=== PATIENT | female | born 1950 | race Caucasian/White ===

== ENCOUNTER 2019-05-22 16:26 | Emergency (ER) | payer OTHER ==
--- OUTSIDE RECORDS SUMMARY | 2019-05-22 16:27 | XMS REPORT ---
:1950 [facility] Address [address] [place] [address] [address]. Zaidi [address] [place] [address] Care Team Providers Name Role Phone Unavailable Unavailable Unavailable Problems This patient has no known problems. Allergies, Adverse Reactions, Alerts This patient has no known allergies or adverse reactions. Medications This patient has no known medications. Encounters Start End Encounter Admission Attending Care Care Encounter Date/Time Date/Time Type Type Clinicians Facility Department ID 2019-03-03 Inpatient E [facility] [id number] 21:14:00
--- OUTSIDE RECORDS SUMMARY | 2019-05-22 16:27 | XMS REPORT ---
:1950 Author Organization eClinicalWorks Care Team Providers Name Role Phone Sophia Alvarado Provider Role Unavailable Allergies No Known Allergies Problems Problem Type Condition Code Onset Dates Condition Status Problem Diabetes E11.9 Active Problem Anxiety F41.9 Active Problem Hypertension I10 Active Problem Swelling R60.9 Active Problem Stroke I63.9 Active Problem Memory problem R41.3 Active Medications No Known Medications Results No Known Results Summary Purpose eClinicalWorks Submission
--- OUTSIDE RECORDS SUMMARY | 2019-05-22 16:28 | XMS REPORT ---
:1950 Author Organization eClinical[employer] Care Team Providers Name Role Phone Abdifatahmehrdad Sophia Provider Role Unavailable Allergies, Adverse Reactions, Alerts Substance Reaction Event Type N.K.D.A. Info Not Available Non Drug Allergy Problems Problem Type Condition Code Onset Dates Condition Status Problem Dysphagia, unspecified type R13.10 Active Problem Acute CVA (cerebrovascular accident) I63.9 Active Problem Swelling R60.9 Active Problem Hypertension I10 Active Assessment Dysarthria R47.1 Active Problem Diabetes E11.9 Active Assessment Paresis G83.9 Active Assessment Decreased sensation R20.8 Active Problem Essential hypertension I10 Active Problem Dysarthria R47.1 Active Problem Multiple falls R29.6 Active Problem Anxiety F41.9 Active Problem Memory problem R41.3 Active Assessment Multiple falls R29.6 Active Assessment Uncontrolled type 2 diabetes E11.65 Active mellitus with hyperglycemia Assessment Dysphagia, unspecified type R13.10 Active Assessment Acute CVA (cerebrovascular accident) I63.9 Active Problem Uncontrolled type 2 diabetes E11.65 Active mellitus with hyperglycemia Problem Paresis G83.9 Active Assessment Anxiety F41.9 Active Assessment Essential hypertension I10 Active Problem Insomnia, unspecified type G47.00 Active Assessment Insomnia, unspecified type G47.00 Active Problem Decreased sensation R20.8 Active Medications Medication Code Code Instructions Start End Status Dosage System Date Date Plavix [facility] 29161441278 75 MG Orally Active 1 tablet Once a day Potassium [facility] 45038624937 20 MEQ Orally Active 1 tablet Chloride Once a day with food Memantine HCl ND 35554273066 5 MG Orally Active 1 tablet Twice a day Lisinopril [facility] 18230311151 5 MG Orally Once Active 1/2 a day tablet Trazodone HCl [facility] 43101554136 100 MG Orally Active 1 tablet Once a day at bedtime HydrOXYzine HCl [facility] 69090586907 25 MG Orally Active 1 tablet Once daily in as needed evening Sertraline HCl [facility] 57920177906 100 MG Orally Active 1 tablet Once a day Aspirin 81 [facility] 29642562458 81 MG Orally Active 1 tablet Once a day Metformin HCl [facility] 18108237084 500 MG Orally Active 1 tablet Twice a day with a meal Results No Known Results Summary Purpose eClinicalWorks Submission
[2019-05-22] MEDS ORDERED: NA CHLORIDE 0.9% 1,000 ML ONE (17:12)
[2019-05-22] MEDS ORDERED: FOLIC ACID 5 MG/ML VIAL ONE (17:13)
[2019-05-22 17:40] LABS: Absolute Lymphocytes (CBC) 2.2 K/uL (0.7-4.9); Basophils % 0.7 % (0-1.3); Hematocrit 42.4 % (36.0-45.0); Lymphocytes % 26.3 % (15.3-44.8); MPV 7.7 fL (7.6-11.3); RBC Red Blood Cell Count 4.97 M/uL (3.86-4.86)
[2019-05-22 17:43] LABS: Protime INR 1.04
--- NOTE | 2019-05-22 17:49 | RAD REPORT ---
EXAM DESCRIPTION: CT - Head C Spine Cap Wo Con - 05/22/2019 5:16 pm TECHNIQUE: Computed axial tomography of the head and cervical spine was obtained. Coronal and sagitt al reconstruction was performed Computed axial tomography of the chest, abdomen and pelvis was obtained. Contrast was not requested. All CT scans are performed using dose optimization technique as appropriate and may include automated exposure control or mA/KV adjustment according to patient size. 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 Additional small amount of b lood is present within the medial left frontal region. It probably is subarachnoid. The ventricles are normal in caliber. An extra-axial fluid collection is not noted. . Fluid within the sinuses/mastoids is not seen. A cervical fracture is not seen. No dislocation is noted. Spondylosis The evaluation of mediastinum, dhruv, vessels, solid organs and bowel are limited secondary to the lac k of contrast administration. A mediastinal hematoma is not noted. A pleural effusion is not seen. A lung contusion is not present. The liver,spleen, pancreas, adrenals,kidneys and bladder appear grossly normal. 6 centimeter low to intermediate density structure is present within pelvis to the right of midline. IMPRESSION: 1. Small amount of blood within the frontal regions bilaterally probably subarachnoid 2. A cervical fracture is not visualized. If the patient continues have symptoms to suggest intracran ial/spinal cord pathology MRI be recommended 3. No traumatic injury involving the chest/ abdomen 4. 6 centimeter low to intermediate density structure within the pelvis probably is adnexal in origin . Pelvic ultrasound is recommend The exam was discussed with Dr Mejia in the Emergency Room at 5:42 p.m. May 22, 2019
--- NOTE | 2019-05-22 17:57 | RAD REPORT ---
EXAM DESCRIPTION: [place] Single View05/22/2019 5:16 pm CLINICAL HISTORY: Chest pain COMPARISON: none FINDINGS: The lungs appear clear of acute infiltrate. The heart is normal size IMPRESSION: No acute abnormalities displayed
--- NOTE | 2019-05-22 17:58 | EDPHYS ---
Physician Documentation [facility] Name: Yue Dawson Age: 69 yrs Sex: Female : 1950 Arrival Date: 05/22/2019 Time: 16:28 Bed 6 Private MD: ED Physician Uziel Mejia HPI: 05/22 16:51 This 69 yrs old Female presents to ER via EMS with complaints of Dizziness. patricia 16:51 The patient presents with dizziness, feeling faint. patricia 16:51 fall 2 days ago, hit head, pain since then. Details of fall: The patient fell from an [facility] upright position, while standing. Onset: The symptoms/episode began/occurred 2 day(s) ago. Associated injuries: The patient sustained injury to the head, neck injury, upper back injury, pain. Context: occurred at home. Modifying factors: The symptoms are alleviated by nothing, the symptoms are aggravated by. Associated signs and symptoms: The patient has no apparent associated signs or symptoms. Severity of symptoms: At their worst the symptoms were moderate in the emergency department the symptoms are unchanged. Historical: - Allergies: 16:41 No Known Allergies; ss - PMHx: 16:47 IBS; Hypertension; CVA; L sided weakness; Diabetes - NIDDM; ss - Immunization history:: Adult Immunizations up to date. - Social history:: Smoking status: Patient uses tobacco products, smokes one-half pack cigarettes per day. - Ebola Screening: : Patient denies exposure to infectious person Patient denies travel to an Ebola-affected area in the 21 days before illness onset. - Family history:: not pertinent. ROS: 16:51 Constitutional: Negative for fever, chills, and weight loss, Eyes: Negative for injury, patricia pain, redness, and discharge, ENT: Negative for injury, pain, and discharge, Neck: Negative for injury, pain, and swelling, Cardiovascular: Negative for chest pain, palpitations, and edema, Respiratory: Negative for shortness of breath, cough, wheezing, and pleuritic chest pain, Abdomen/GI: Negative for abdominal pain, nausea, vomiting, diarrhea, and constipation, Back: Negative for injury and pain, : Negative for injury, bleeding, discharge, and swelling, MS/Extremity: Negative for injury and deformity, Skin: Negative for injury, rash, and discoloration, Psych: Negative for depression, anxiety, suicide ideation, homicidal ideation, and hallucinations, Allergy/Immunology: Negative for hives, rash, and allergies, Endocrine: Negative for neck swelling, polydipsia, polyuria, polyphagia, and marked weight changes. 16:51 Neuro: Positive for altered mental status, dizziness, headache, of the scalp. Exam: 16:51 Constitutional: This is a well developed, well nourished patient who is awake, alert, patricia and in no acute distress. Head/Face: Normocephalic, atraumatic. Eyes: Pupils equal round and reactive to light, extra-ocular motions intact. Lids and lashes normal. Conjunctiva and sclera are non-icteric and not injected. Cornea within normal limits. Periorbital areas with no swelling, redness, or edema. ENT: Nares patent. No nasal discharge, no septal abnormalities noted. Tympanic membranes are normal and external auditory canals are clear. Oropharynx with no redness, swelling, or masses, exudates, or evidence of obstruction, uvula midline. Mucous membranes moist. Neck: Trachea midline, no thyromegaly or masses palpated, and no cervical lymphadenopathy. Supple, full range of motion without nuchal rigidity, or vertebral point tenderness. No Meningismus. Chest/axilla: Normal chest wall appearance and motion. Nontender with no deformity. No lesions are appreciated. Cardiovascular: Regular rate and rhythm with a normal S1 and S2. No gallops, murmurs, or rubs. Normal PMI, no JVD. No pulse deficits. Respiratory: Lungs have equal breath sounds bilaterally, clear to auscultation and percussion. No rales, rhonchi or wheezes noted. No increased work of breathing, no retractions or nasal flaring. Abdomen/GI: Soft, non-tender, with normal bowel sounds. No distension or tympany. No guarding or rebound. No evidence of tenderness throughout. Back: No spinal tenderness. No costovertebral tenderness. Full range of motion. Skin: Warm, dry with normal turgor. Normal color with no rashes, no lesions, and no evidence of cellulitis. MS/ Extremity: Pulses equal, no cyanosis. Neurovascular intact. Full, normal range of motion. Neuro: Awake and alert, GCS 15, oriented to person, place, time, and situation. Cranial nerves II-XII grossly intact. Motor strength 5/5 in all extremities. Sensory grossly intact. Cerebellar exam normal. Normal gait. Psych: Awake, alert, with orientation to person, place and time. Behavior, mood, and affect are within normal limits. 16:55 Back: pain, that is mild, ROM is normal, normal spinal alignment noted, no deformity, patricia CVA tenderness, is absent, bruise 4x5 cm left scapular area. Vital Signs: 16:41 BP 111 / 80; Pulse 79; Resp 18; Temp 97.6(O); Pulse Ox 95% on R/A; Weight 90.72 kg; ss Height 5 ft. 5 in. (165.10 cm); Pain 0/10; 19:10 BP 139 / 109; Pulse 81; Resp 20; Pulse Ox 93% on R/A; jb4 19:45 BP 115 / 64; Pulse 78; Resp 23; Pulse Ox 95% on R/A; jb4 16:41 Body Mass Index 33.28 (90.72 kg, 165.10 cm) ss MDM: 16:30 Patient medically screened. [facility] 16:54 Data reviewed: vital signs, nurses notes, lab test result(s), EKG, radiologic studies, [facility] CT scan, plain films. 05/22 16:50 Order name: Basic Metabolic Panel; Complete Time: 18:02 [facility] 05/22 16:50 Order name: CBC with Diff; Complete Time: 17:43 [facility] 05/22 16:50 Order name: LFT's; Complete Time: 18:02 [facility] 05/22 16:50 Order name: Magnesium; Complete Time: 18:02 [facility] 05/22 16:50 Order name: NT PRO-BNP; Complete Time: 18:02 [facility] 05/22 16:50 Order name: PT-INR; Complete Time: 17:46 05/22 16:50 Order name: Troponin (emerg Dept Use Only); Complete Time: 18:02 [facility] 05/22 16:50 Order name: XRAY Chest (1 view); Complete Time: 18:02 [facility] 05/22 16:50 Order name: CT Traumagram (Head C Spine CAP wo con); Complete Time: 18:00 [facility] 05/22 16:50 Order name: Lipase; Complete Time: 18:02 [facility] 05/22 16:50 Order name: Cardiac monitoring [facility] 05/22 16:50 Order name: EKG - Nurse/Tech [facility] 05/22 16:50 Order name: IV Saline Lock; Complete Time: 17:42 [facility] 05/22 16:50 Order name: Labs collected and sent; Complete Time: 17:42 [facility] 05/22 16:50 Order name: O2 Per Protocol; Complete Time: 17:42 [facility] 05/22 16:50 Order name: O2 Sat Monitoring; Complete Time: 19:02 [facility] 05/22 18:54 Order name: Oxygen; Complete Time: 19:02 [facility] Administered Medications: 17:30 Drug: NS 0.9% 1000 ml Route: IV; Rate: 1 bolus; Site: right wrist; sg 20:19 Follow up: Response: No adverse reaction; IV Status: Infusion continued upon transfer jb4 17:30 Drug: foLIC Acid 1 mg Route: IVPB; Site: right wrist; sg 17:40 Follow up: Response: No adverse reaction; IV Status: Completed infusion 18:10 Drug: Keppra 1000 mg Route: IV; Rate: per protocol; Site: right wrist; sg 19:00 Follow up: Response: No adverse reaction; IV Status: Completed infusion sg 19:30 Drug: Ativan 0.5 mg Route: IVP; Site: right antecubital; jb4 20:06 Follow up: Response: No adverse reaction jb4 20:00 Drug: Ativan 0.5 mg Route: IVP; Site: right antecubital; jb4 20:19 Follow up: Response: No adverse reaction jb4 20:01 Drug: Rocephin 1 grams Route: IV; Rate: per protocol; Site: right antecubital; jb4 20:03 Follow up: Response: No adverse reaction; IV Status: Completed infusion; IV Intake: [id number] Disposition: 05/22/19 17:[address] [facility]. Diagnosis are Dizziness and giddiness, Fall (on)(from) incline, Traumatic subarachnoid hemorrhage without loss of consciousness. - Reason for transfer: Higher level of care. - Accepting physician is to [facility], neuro. - Condition is Fair. - Problem is new. - Symptoms have improved. Signatures: Dispatcher [employer] EDSingh Longo RN RN Uziel Hayes MD MD cha Smirch, Shelby, RN RN Salas Holliday RN RN jb4 Corrections: (The following items were deleted from the chart) 18:49 18:03 Transvaginal Study (Probe)+US.RAD.BRZ ordered. EDMS EDMS 20:19 17:57 05/22/2019 17:[address] [facility]. Diagnosis is jb4 Dizziness and giddiness; Fall (on)(from) incline; Traumatic subarachnoid hemorrhage without loss of consciousness. Reason for transfer: Higher level of care. Accepting physician is to [facility], neuro. Condition is Fair. Problem is new. Symptoms have improved. patricia
--- NOTE | 2019-05-22 17:58 | ER ---
Nurse's Notes [facility] Name: Yue Dawson Age: 69 yrs Sex: Female : 1950 Arrival Date: 05/22/2019 Time: 16:28 Bed 6 Private MD: Diagnosis: Dizziness and giddiness;Fall (on)(from) incline;Traumatic subarachnoid hemorrhage without loss of consciousness Presentation: 05/22 16:28 Presenting complaint: Patient states: Dizziness x 3 days. Pt reports she fell from a ss standing position yesterday and may have hit her head. No LOC. + Plavix. Pt reports she had an ischemic stroke February 2019 which left her with residual L sided deficits. Transition of care: patient was not received from another setting of care. Onset of symptoms was May 19, 2019. Risk Assessment: Do you want to hurt yourself or someone else? Patient reports no desire to harm self or others. Initial Sepsis Screen:. Care prior to arrival: IV initiated. 20 GA, in the right forearm, Glucose check: 143. 16:28 Method Of Arrival: EMS: [facility] 16:28 Acuity: DHRUV 3 16:42 Initial Sepsis Screen: Does the patient meet any 2 criteria? No. Patient's initial ss sepsis screen is negative. Does the patient have a suspected source of infection? No. Patient's initial sepsis screen is negative. Note Family member arrived and stated that patient actually fell 2 days ago and has had worsening dizziness since and is concerned because she is on Plavix. Historical: - Allergies: 16:41 No Known Allergies; ss - PMHx: 16:47 IBS; Hypertension; CVA; L sided weakness; Diabetes - NIDDM; ss - Immunization history:: Adult Immunizations up to date. - Social history:: Smoking status: Patient uses tobacco products, smokes one-half pack cigarettes per day. - Ebola Screening: : Patient denies exposure to infectious person Patient denies travel to an Ebola-affected area in the 21 days before illness onset. - Family history:: not pertinent. Screenin:20 Abuse screen: Denies threats or abuse. Denies injuries from another. Nutritional sg screening: No deficits noted. Tuberculosis screening: No symptoms or risk factors identified. Never had TB. Fall Risk None identified. Assessment: 16:30 General: Appears in no apparent distress. well groomed, well developed, well nourished, sg Behavior is calm, appropriate for age. Neuro: Level of Consciousness is awake, alert, obeys commands, Oriented to person, time, situation, Speech is slurred, with mild expressive aphasia, pt reports this is her normal post CVA. pt noted to have a gaze to the left, with a left sided tremor to shoulder and arm, the left arm has been repositioned and hand supported with folded up rag. Cardiovascular: Heart tones S1 S2 present Patient's skin is warm and dry. Chest pain is denied. Respiratory: Airway is patent Respiratory effort is even, unlabored, Respiratory pattern is regular, symmetrical. GI: No signs and/or symptoms were reported involving the gastrointestinal system. : No signs and/or symptoms were reported regarding the genitourinary system. Parent/caregiver report the patient having pt has been able to void in the toilet with standby assist. EENT: No signs and/or symptoms were reported regarding the EENT system. Derm: Skin is pink, warm \T\ dry. Musculoskeletal: Circulation, motion, and sensation intact. Range of motion: intact in all extremities. 17:30 Reassessment: Patient appears in no apparent distress at this time. pt family remains sg at bedside, pt provided with warm blankets and yellow fall risk socks applied. 18:20 Reassessment: Patient appears in no apparent distress at this time. Patient and/or sg family updated on plan of care and expected duration. Pain level reassessed. Patient is alert, oriented x 3, equal unlabored respirations, skin warm/dry/pink. 18:25 Reassessment: Patient appears in no apparent distress at this time. pt and pt family sg upated on results by , pt re evaluated by at this time. 19:10 Reassessment: Patient appears in no apparent distress at this time. Patient and/or jb4 family updated on plan of care and expected duration. Pain level reassessed. Patient is alert, oriented x 3, equal unlabored respirations, skin warm/dry/pink. Pt is twitching , provider is aware. 19:30 Reassessment: is at the bedside. Reports patient needs to take trazodone in order jb4 to sleep. 20:00 Reassessment: First dose of ativan did not improve twitching, second dose administered. jb4 Reassessment: Patient appears in no apparent distress at this time. Patient and/or family updated on plan of care and expected duration. Pain level reassessed. Patient is alert, oriented x 3, equal unlabored respirations, skin warm/dry/pink. unable to obtain EKG due to twitching. 20:17 Reassessment: Pt transferred to receiving facility via EMS. jb4 Vital Signs: 16:41 BP 111 / 80; Pulse 79; Resp 18; Temp 97.6(O); Pulse Ox 95% on R/A; Weight 90.72 kg; Height 5 ft. 5 in. (165.10 cm); Pain 0/10; 19:10 BP 139 / 109; Pulse 81; Resp 20; Pulse Ox 93% on R/A; jb4 19:45 BP 115 / 64; Pulse 78; Resp 23; Pulse Ox 95% on R/A; jb4 16:41 Body Mass Index 33.28 (90.72 kg, 165.10 cm) ED Course: 16:28 Patient arrived in ED. ss 16:30 Uziel Mejia MD is Attending Physician. patricia 16:30 Maintain EMS IV. Dressing intact. Site clean \T\ dry. sg 16:32 Triage completed. ss 16:40 Patient has correct armband on for positive identification. Placed in gown. Bed in low sg position. Call light in reach. Side rails up X2. instrument worker on. Pulse ox on. NIBP on. Warm blanket given. Head of bed elevated. 16:41 Arm band placed on left wrist. ss 17:[address] via stretcher. eh 17:12 XRAY Chest (1 view) In Process Unspecified. EDMS 17:17 CT Traumagram (Head C Spine CAP wo con) In Process Unspecified. EDMS 17:[address] Mejia with Darrius Maher from the [facility] [place]. eb 18:[address] Márquez the neurologist cashier and salesperson for [facility] with Dr. Mejia for patient transfer consultation. 18:17 administrative approval given by Darrius Maher/ patient has been accepted to [facility] 7 south 5 bed 19/ Dr. Márquez has accepted the patient in transfer/ report to be called to [phone]. 19:12 Report given to Zina WANG and [place] WANG. 19:19 Salas Holliday, RN is Primary Nurse. jb4 19:20 Inserted saline lock: 20 gauge in right antecubital area, using aseptic technique. jb4 20:17 No provider procedures requiring assistance completed. Patient transferred, IV remains jb4 in place. Administered Medications: 17:30 Drug: NS 0.9% 1000 ml Route: IV; Rate: 1 bolus; Site: right wrist; sg 20:19 Follow up: Response: No adverse reaction; IV Status: Infusion continued upon transfer jb4 17:30 Drug: foLIC Acid 1 mg Route: IVPB; Site: right wrist; sg 17:40 Follow up: Response: No adverse reaction; IV Status: Completed infusion 18:10 Drug: Keppra 1000 mg Route: IV; Rate: per protocol; Site: right wrist; sg 19:00 Follow up: Response: No adverse reaction; IV Status: Completed infusion sg 19:30 Drug: Ativan 0.5 mg Route: IVP; Site: right antecubital; jb4 20:06 Follow up: Response: No adverse reaction jb4 20:00 Drug: Ativan 0.5 mg Route: IVP; Site: right antecubital; jb4 20:19 Follow up: Response: No adverse reaction jb4 20:01 Drug: Rocephin 1 grams Route: IV; Rate: per protocol; Site: right antecubital; jb4 20:03 Follow up: Response: No adverse reaction; IV Status: Completed infusion; IV Intake: [id number] Intake: 20:03 IV: 10ml; Total: 10ml. jb4 Outcome: 17:57 ER care complete, transfer ordered by . patricia 18:25 Transferred Note: report called to KATHLEEN Wu for receiving facility sg 20:17 Transferred by ground EMS [facility]. to [facility]. jb4 20:17 Condition: stable 20:17 Discharge instructions given to patient, family, Instructed on the need for transfer, Demonstrated understanding of instructions. 20:19 Patient left the ED. jb4 Signatures: Dispatcher [employer] Teodora Evans RN RN Singh Arango RN RN Uziel Mejia MD MD cha Hagler, Ervin Praveena Torres RN RN Salas Holliday RN RN jb4 Shamika Sy Corrections: (The following items were deleted from the chart) 16:42 16:28 Presenting complaint: Patient states: Dizziness x 3 days. Pt reports she fell ss from a standing position yesterday and may have hit her head. No LOC. + Plavix. Pt reports she had an ischemic stroke February 2019 which left her with residual L sided deficits. ss 20:17 19:10 Reassessment: Patient appears in no apparent distress at this time. Patient jb4 and/or family updated on plan of care and expected duration. Pain level reassessed. Patient is alert, oriented x 3, equal unlabored respirations, skin warm/dry/pink. jb4 20:18 20:00 Reassessment: Patient appears in no apparent distress at this time. Patient jb4 and/or family updated on plan of care and expected duration. Pain level reassessed. Patient is alert, oriented x 3, equal unlabored respirations, skin warm/dry/pink. jb4
[2019-05-22 18:00] LABS: ALT/SGPT 39 U/L (12-78); AST/SGOT 36 U/L (15-37); Albumin 2.9 g/dL (3.4-5.0); Alkaline Phosphatase 81 U/L (45-117); BUN Blood Urea Nitrogen 8 mg/dL (7-18); Bicarbonate 25 mmol/L (21-32); Bilirubin Direct 0.1 mg/dL (0-0.2); Bilirubin Total 0.5 mg/dL (0.2-1.0); Glucose Level 128 mg/dL (74-106); Lipase 125 U/L (73-393); NT PRO-BNP 137 pg/mL (<125); Potassium 3.9 mmol/L (3.5-5.1); Protein, Total 6.5 g/dL (6.4-8.2); Sodium Level 140 mmol/L (136-145); Troponin (Emerg Dept Use Only) < 0.02 ng/mL (0.0-0.045)
[2019-05-22] MEDS ORDERED: levETIRAcetam 1,000 MG in NA CHLORIDE 0.9% 100 ML IV ONE (18:15)
[2019-05-22] MEDS ORDERED: LORazepam 2 MG/ML VIAL ONE (19:25)
[2019-05-22] MEDS ORDERED: CEFTRIAXONE/SWI 1gm 1 GM/10 ML SYR ONE (19:59)
[2019-05-22 20:27] VITALS: TEMP 97.6
[2019-05-22 20:30] VITALS: BP 115/64; O2SAT 95
== END 2019-05-22 20:19 | disposition short-term general hospital (02) ==
LOC: ER 16:26
DX: S06.6X9A Traumatic subarachnoid hemorrhage with loss of consciousness of unspecified duration, initial encounter (principal); W19.XXXA Unspecified fall, initial encounter; Y93.89 Activity, other specified; Y92.009 Unspecified place in unspecified non-institutional (private) residence as the place of occurrence of the external cause; I10 Essential (primary) hypertension; F17.210 Nicotine dependence, cigarettes, uncomplicated
CPT/HCPCS: 96365; 96361; 85025; 80048; 36415; 83735; 85610; 80076; 84484; 83690; 83880; 70450; 71250; 72125; 71045; 96375; 99285; J1953; J0696; J7030